=== PATIENT | male | born 1990 | race Caucasian/White ===

== ENCOUNTER 2020-05-10 08:45 | Emergency (ER) | payer SELFPAY ==
[~2020-05-10] VITALS: Ht 167.6 cm; Wt 65.8 kg
--- NOTE | 2020-05-10 08:45 | NUR ---
PT JAMES FROM THE STREET C/O ETOH. PT IS AAOX3, NOT IN RESPIRATORY DISTRESS, HOOKED TO SAFETY INSPECTOR, KEPT RESTED AND COMFORTABLE. WILL CONTINUE TO MONITOR.
--- NOTE | 2020-05-10 13:19 | NUR ---
(pt.ambulatory with a steady gait. refuses homeless discharge resources. PT. VERBALIZED UNDERSTANDING OF AFTERCARE INSTRUCTIONS.Patient discharged to home in stable condition. Written and verbal after care instructions given. Patient verbalizes understanding of instruction.
[2020-05-10 13:23] VITALS: BP 123/71
== END 2020-05-10 13:23 | disposition home or self-care (01) ==
LOC: ER 08:49
DX: F10.129 Alcohol abuse with intoxication, unspecified (principal); Y90.9 Presence of alcohol in blood, level not specified

== ENCOUNTER 2020-05-21 18:24 | Emergency (ER) | payer SELFPAY ==
[~2020-05-21] VITALS: Ht 167.6 cm; Wt 67.1 kg
--- NOTE | 2020-05-21 18:29 | NUR ---
BIB [facility] FROM [facility], UNABLE TO GET UP, STRONG ETOH BREATH, TO ER BED 15, HOOKED TO MONITOR, APPEARS DROWSY. AWAITING MD GUEVARA
--- NOTE | 2020-05-21 18:44 | NUR ---
DR NICOLE AT BEDSIDE
[2020-05-21] MEDS ORDERED: ONDANSETRON 4 MG TAB.RAPDIS ONE (18:56)
[2020-05-21] MEDS ORDERED: IV NS 0.9% 1,000 ML BAG IV ONE (19:00)
[2020-05-21] MEDS ORDERED: ONDANSETRON 4 MG TAB.RAPDIS PO ONE (19:00)
--- NOTE | 2020-05-21 19:01 | NUR ---
REFUSED INSERTION IF IVP, REFUSED BLOOD DRAW. MADE AWARE
--- NOTE | 2020-05-21 19:20 | NUR ---
Pt roadtested. Ambulatory w/ steady gait
--- NOTE | 2020-05-21 19:41 | NUR ---
Patient given written and verbal discharge instructions. Patient verbalizes understanding of instructions. Patient is ambulatory with steady gait. Refuses offer of senior living placement. Patient given list of available shelters in surrounding area.
[2020-05-21 19:42] VITALS: BP 132/84
--- NOTE | 2020-05-21 19:42 | NUR ---
PATIENT IS AMBULATORY WITH A STEADY GAIT.
== END 2020-05-21 19:43 | disposition home or self-care (01) ==
LOC: ER 18:26
DX: F10.20 Alcohol dependence, uncomplicated (principal); R40.4 Transient alteration of awareness; Y90.9 Presence of alcohol in blood, level not specified; Z60.2 Problems related to living alone
CPT/HCPCS: 99283; J7030; Q0162

== ENCOUNTER 2020-08-03 12:07 | Emergency (ER) | payer MEDICAID ==
[~2020-08-03] VITALS: Ht 167.6 cm; Wt 68.0 kg
--- NOTE | 2020-08-03 12:24 | NUR ---
BIB TO ER BED 7. AWAKE AND ALERT. NOT IN RESP DISTRESS. BROUGHT IN ANXIETY. UPON ASSESSMENT, PT IS ASKING TO HAVE "CLONOPIN". PER EMS REPORT, PT DENIES MD WAS AT THE BEDSIDE FOR YESSI. ORDERS RECEIVED.
--- NOTE | 2020-08-03 12:40 | NUR ---
BLOOD DRAWN AT BEDSIDE BY PHLEB AND URINE SENT WELL
[2020-08-03 12:47] LABS: APPEARANCE,URINE CLEAR (CLEAR); BILIRUBIN,URINE NEGATIVE (NEGATIVE); BLOOD, URINE NEGATIVE Ery/uL (NEGATIVE); COLOR,URINE YELLOW (YELLOW); KETONES,URINE NEGATIVE (NEGATIVE); LEUKOCYTE ESTERASE ,URINE NEGATIVE (NEGATIVE); NITRITE, URINE NEGATIVE (NEGATIVE); PROTEIN,URINE NEGATIVE (NEGATIVE); UGLUCOSE NEGATIVE (NEGATIVE); UROBILINOGEN,URINE 0.2 EU/dL (0.2)
[2020-08-03 12:48] LABS: BASOPHILS # (AUTO) 0.1 /CMM (0.0-0.2); BASOPHILS % (AUTO) 1.2 % (0.0-2.0); EOSINOPHILS % (AUTO) 1.6 % (0.0-6.0); HEMATOCRIT 38 % (39-51); HEMOGLOBIN 12.4 g/dL (13.5-17.5); LYMPHOCYTES # (AUTO) 1.4 /CMM (0.8-4.8); MEAN CORPUSCULAR HGB CONC 33 g/dl (31.0-36.0); MEAN CORPUSCULAR VOLUME 94 fL (80-96); MONOCYTES # (AUTO) 0.8 /CMM (0.1-1.30); MONOCYTES % (AUTO) 11.7 % (2.0-12.0); NEUTROPHILS # (AUTO) 4.4 /CMM (1.8-8.9); NEUTROPHILS % (AUTO) 64.5 % (43.0-81.0); PLATELET COUNT (AUTO) 148 /CMM (150-450); RED BLOOD CELL COUNT(AUTO) 3.99 MIL/uL (4.5-6.0); WHITE BLOOD COUNT (AUTO) 6.8 K/uL (4.3-11.0)
[2020-08-03 12:56] LABS: CALCIUM, SERUM 8.1 mg/dL (8.5-10.1); CARBON DIOXIDE 21 mmol/L (21-32); CHLORIDE 104 mmol/L (98-107); CREATININE 0.6 mg/dL (0.6-1.3); GLUCOSE 85 mg/dL (74-106); POTASSIUM 3.5 mmol/L (3.5-5.1); SODIUM SERUM 140 mmol/L (136-145); UREA NITROGEN, BLOOD 6 mg/dL (7-18)
[2020-08-03 13:02] LABS: ALANINE AMINOTRANSFERASE 104 U/L (12-78); ALBUMIN 3.7 g/dL (3.4-5.0); ALKALINE PHOSPHATASE 75 U/L (46-116); ASPARTATE AMINOTRANSFERASE 87 U/L (15-37); BILIRUBIN,DIRECT 0.3 mg/dL (0.0-0.2); TOTAL PROTEIN, SERUM 7.9 g/dL (6.4-8.2)
[2020-08-03 13:03] LABS: ACETAMINOPHEN 0 ug/ml (10-30); ALCOHOL, BLOOD 333 mg/dL (0-0)
--- NOTE | 2020-08-03 13:37 | NUR ---
PT IN BED SLEEPING. NAD NOTED
[2020-08-03 19:40] VITALS: BP 138/89
== END 2020-08-03 19:41 | disposition home or self-care (01) ==
LOC: ER 12:13
DX: F10.129 Alcohol abuse with intoxication, unspecified (principal); Z60.2 Problems related to living alone; Y90.8 Blood alcohol level of 240 mg/100 ml or more
CPT/HCPCS: 36415; 80048-TC; 80076-TC; 81000-TC; 85025-TC; G0480